=== PATIENT | male | born 2000 | race Two or more races ===

== ENCOUNTER 2023-01-13 11:18 | Emergency (ER) | payer OTHER ==
[~2023-01-13] VITALS: Ht 182.9 cm; Wt 77.1 kg
[2023-01-13] MEDS ORDERED: ZITHROMAX500 MG PO (18:29)
== END 2023-01-13 18:44 | disposition home or self-care (01) ==
LOC: ER 11:18
DX: B34.9 Viral infection, unspecified (principal); Z20.822 Contact with and (suspected) exposure to COVID-19